=== PATIENT | female | born 2000 | race Caucasian/White ===

== ENCOUNTER 2022-11-02 09:03 | Emergency (ER) | payer OTHER ==
[~2022-11-02] VITALS: Ht 162.6 cm; Wt 59.0 kg
== END 2022-11-02 10:45 | disposition home or self-care (01) ==
LOC: FSED 09:21
DX: H54.61 Unqualified visual loss, right eye, normal vision left eye (principal); J45.909 Unspecified asthma, uncomplicated
CPT/HCPCS: 70450; 99283